=== PATIENT | female | born 1970 | race Caucasian/White ===

== ENCOUNTER 2019-02-03 07:28 | Inpatient (IN) | payer SELFPAY ==
[2019-02-03] MEDS ORDERED: FAMOTIDINE 20 MG/2 ML VIAL IV ONE (08:48)
[2019-02-03] MEDS ORDERED: ESMOLOL HCL 100 MG/10 ML IV ONE (08:48)
[2019-02-03] MEDS ORDERED: BUPIV. HCL 0.25% (2.5MG/ML)/EPI. (1:200,000) PF 30 ML VIAL IJ ONE (08:48)
[2019-02-03] MEDS ORDERED: LACTATED RINGERS 1,000 ML IV.SOLN IV ONE ×2 (08:48)
[2019-02-03] MEDS ORDERED: ROCURONIUM BROMIDE 10 MG/ML 5ML VIAL ONE (08:48)
[2019-02-03] MEDS ORDERED: PHENYLEPHRINE HCL 10 MG/1 ML ONE (08:48)
[2019-02-03] MEDS ORDERED: ONDANSETRON HCL/PF 4 MG/ 2ML VIAL ONE (08:48)
[2019-02-03] MEDS ORDERED: ePHEDrine SULFATE 50 MG/1 ML IVP ONE (08:48)
[2019-02-03] MEDS ORDERED: LIDOCAINE HCL 2% PF 100MG/5ML VIAL IJ ONE (08:48)
[2019-02-03] MEDS ORDERED: DEXAMETHASONE SODIUM PHOSPHATE 10 MG/ML VIAL ONE (08:48)
[2019-02-03] MEDS ORDERED: LIDOCAINE HCL 1% PF 300MG/30ML VIAL ONE (08:48)
[2019-02-03] MEDS ORDERED: SODIUM CHLORIDE IRRIG SOLUTION 3,000 ML IRRIG.SOLN IR ONE (08:48)
[2019-02-03] MEDS ORDERED: LEVALBUTEROL NEB 1.25 MG/3 ML VIAL.NEB NEB ONE (08:48)
[2019-02-03] MEDS ORDERED: SUGAMMADEX SODIUM 200 MG/2 ML VIAL IV ONE (08:48)
[2019-02-03] MEDS ORDERED: MIDAZOLAM HCL 2 MG/2 ML VIAL ONE (08:48)
[2019-02-03] MEDS ORDERED: SCOPOLAMINE HYDROBROMIDE 1.5MG/72HR PATCH TD ONE (08:48)
[2019-02-03] MEDS ORDERED: ceFAZolin SODIUM 1 GM VIAL ONE (08:48)
[2019-02-03] MEDS ORDERED: PROPOFOL 200 MG/20 ML VIAL IV ONE (08:48)
[2019-02-03] MEDS ORDERED: SEVOFLURANE 250 ML LIQUID IH ONE (08:48)
[2019-02-03] MEDS ORDERED: PROMETHAZINE HCL 25 MG in 0.9 % SODIUM CHLORIDE 50 ML IV PRN (11:49)
[2019-02-03] MEDS ORDERED: IPRATROPIUM/ALBUTEROL SULFATE 3 ML AMPUL.NEB NEB PRN (11:49)
[2019-02-03] MEDS ORDERED: MORPHINE SULFATE 2 MG/ML VIAL IV PRN (11:49)
--- NOTE | 2019-02-03 11:57 | History and Physical Report ---
History of Present Illnes - History of Present Illness Reason for Visit: S/P LSG History of Present Illness: Patient is a 48-year-old female who has tried multiple diets and exercise programs with no success. She has always struggled with her weight ever since having children. Patient and surgeon decided to proceed with gastric sleeve procedure. Procedure went well-Patient has been on a liquid diet prior to surgery so she is a risk of dehydration s/p surgery. She will be admitted for IV hydration to help hydrate patient until he is able to tolerate a sufficient oral intake, will treat pain with IV medication until patient is able to tolerate oral meds, IV antiemetics to help reduce episodes of nausea and/or vomiting. Patient will be monitored closely using telemetry s/p surgery d/t ROME. Will encourage incentive spirometer for morbid obesity and ROME. Will also monitor blood sugars closely due to low caloric intake. Patient appears very uncomfortable s/p surgery. 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 negative: Cough Cardiovascular: negative: Chest Pain Gastrointestinal: Nausea, Vomiting, Abdominal Pain Genitourinary: negative: Dysuria Musculoskeletal: Back Pain Skin: Other (abdominal incisions x 5) Neurological: Weakness - Medications/Allergies Allergies/Adverse Reactions: Allergies Allergy/AdvReac Type Severity Reaction Status Date / Time No Known Allergies Allergy Unverified 02/03/19 11:49 Exam - Exam General: Alert, Oriented to Person, Oriented to Place, Cooperative, Moderate distress (dry heaves), Morbidly Obese HEENT: PERRLA, Mouth Mucous membr. moist/[place], Nose Mucous membr. moist/[place] Neck: Normal Range of Motion Carotids: No bruit Lungs: Clear to auscultation, Normal air movement Cardiovascular: Regular rate, Normal S1, Normal S2 Peripheral Edema: None Peripheral Pulses: 2+ Abdomen: Soft, Decreased Bowel Sounds Integumentary: Warm, Dry, Pale, Other (incisions x5 without re dness/erythema/drainage; skin adhesive intact) Extremities: No edema, Normal pulses, No tenderness/swelling Neurological: Strength Equal Bilat, Sensation intact, Generalized Weakness Psych/Mental Status: Mental status NL, Mood NL, Appropriate Affect Assessment/Plan - Assessment/Plan (1) S/P laparoscopic sleeve gastrectomy Status: Acute Current Visit: Yes Plan: Plan to admit for IV hydration, IV pain meds, and IV antiemetics. Lovenox and SCDs to help prevent DVTs, IS and frequent ambulation will be implemented. Start ice chips and advance diet as tolerated. IV pepcid BID (2) Morbid obesity due to excess calories Status: Acute Current Visit: Yes Plan: Patient is s/p gastric sleeve. We will assist patient with implementing gastric sleeve diet protocol starting with ice chips and clear liquids and advancing as tolerated (3) Type 2 diabetes mellitus Status: Acute Current Visit: Yes Assessment: will monitor blood sugars ac & hs Plan: if blood sugars elevated may need to implement SSI (4) Nausea and vomiting Status: Acute Current Visit: Yes Plan: Pepcid IV BID ordered; IV antiemetics, and IVF (5) Osteoarthritis Status: Acute Current Visit: Yes Plan: Patient will be receiving pain medications; may use heating pad as needed (6) Obstructive sleep apnea Status: Acute Current Visit: Yes Plan: Patient has mild sleep apnea; no device; will monitor pulse ox and resp. status closely until fully withdrawn from anesthesia VTE Assessment - RISK FACTOR SCORE VTE RISK FACTOR SCORES: AGE 40-60 YEARS, OBESITY - RISK VTE MODERATE RISK: SCORE OF 2 (RISK PROXIMAL DVT 2-4%) PROPHYAXIS NEEDED (Lovenox, SCDs, Frequent ambulation, incentive spirometer)
[2019-02-03 12:05] VITALS: BMI 43.5
[2019-02-03] MEDS: 0.9 % SODIUM CHLORIDE 1,000 ML IV SCH ×2 (12:08→19:39)
[2019-02-03] MEDS: ACETAMINOPHEN 1,000 MG/100 ML INJ IV PRN (14:00)
[2019-02-03] MEDS: ONDANSETRON HCL/PF 4 MG/ 2ML VIAL IVP PRN (16:30)
[2019-02-03] MEDS: ceFAZolin SODIUM 1 GM in 0.9 % SODIUM CHLORIDE 50 ML IV SCH (17:05)
[2019-02-03] MEDS: FAMOTIDINE 20 MG/2 ML VIAL IVP SCH (20:15)
[2019-02-04] MEDS: ONDANSETRON HCL/PF 4 MG/ 2ML VIAL IVP PRN ×2 (00:30→17:15)
[2019-02-04] MEDS: ceFAZolin SODIUM 1 GM in 0.9 % SODIUM CHLORIDE 50 ML IV SCH (01:00)
[2019-02-04] MEDS: 0.9 % SODIUM CHLORIDE 1,000 ML IV SCH ×4 (02:51→22:05)
[2019-02-04 05:52] LABS: BASOPHILS % 0.5 % (0.0-1.5); NEUTROPHILS # 12.9 # k/uL (1.4-7.7)
--- NOTE | 2019-02-04 05:55 | Inpatient Progress Note ---
Subjective - Required Recertification Statement I anticipate X number of days because-include discharge plan: 1 - Review of Systems Events since last encounter: Patient is lying in bed this morning awake. She states that she did not get much sleep. She was having a lot of discomfort last night. She states that pain is improving. She has had some nausea and moderate discomfort from the gas. She denies any chest pain or shortness of breath. She has been up ambulating in the halls and using incentive spirometer while awake. She is compliant with care. General: Denies: Chills HEENT: Denies: Head Aches, Dysphasia Pulmonary: Denies: Dyspnea Cardiovascular: Denies: Chest Pain Gastrointestinal: Nausea, Vomiting, Abdominal Pain Genitourinary: Denies: Incontinence Musculoskeletal: Denies: Back Pain Neurological: Weakness Objective - Exam Vitals and I&O: Vital Signs Temp 98.3 F 02/04/19 02:00 Pulse 103 H 02/04/19 05:09 Resp 20 02/04/19 05:09 BP 162/82 02/04/19 02:00 Pulse Ox 97 02/04/19 05:08 Intake & Output 02/03/19 02/03/19 02/04/19 11:59 23:59 11:59 Intake Total 0 480 900 Output Total 0 550 1400 Balance 0 -70 -500 Weight 111.584 kg 111.584 kg 113.852 kg Intake: IV 450 900 Left AC space 450 900 Oral 0 30 Output: Urine 0 550 1400 Other: Voiding Method Toilet Toilet Toilet # Bowel Movements 0 0 0 General: Alert, Oriented to Person, Oriented to Place, Oriented to Time, Cooperative, Mild distress, Morbidly Obese HEENT: Atraumatic, PERRLA, Mouth Mucous membr. moist/[place], Nose Mucous membr. moist/[place] Neck: Supple, +2 carotid pulse wo bruit Lungs: Clear to auscultation, Normal air movement, Speaks full Sentences Cardiovascular: Regular rate, Normal S1, Normal S2 Abdomen: Soft, Decreased Bowel Sounds Extremities: No edema, Normal pulses, No tenderness/swelling Skin: [place], Warm, Dry, Other (incisions without redness/erythema/drainage; skin adhesive intact) Neurological: Normal gait, Normal speech, Strength Equal Bilat, Generalized Weakness Psych/Mental Status: Mental status NL, Mood NL, Appropriate Affect, Intact Judgment - Results Results: Laboratory Results WBC 15.80 K/ul (4.00-12.00) H 02/04/19 05:15 RBC 4.05 M/ul (3.90-5.20) 02/04/19 05:15 Hgb 12.5 g/dL (11.5-16.0) 02/04/19 05:15 Hct 36.2 % (34.5-46.5) 02/04/19 05:15 MCV 89.0 fl (80.0-100.0) 02/04/19 05:15 MCH 30.8 pg (28.0-34.0) 02/04/19 05:15 MCHC 34.4 g/dL (30.0-36.0) 02/04/19 05:15 RDW 12.2 % (11.3-14.3) 02/04/19 05:15 Plt Count 311 K/mm3 (130-400) 02/04/19 05:15 Neut % (Auto) 8.5 % (39.0-79.0) L 02/04/19 05:15 Lymph % (Auto) 11.9 % (16.0-50.0) L 02/04/19 05:15 [place] % (Auto) 5.1 % (0.0-11.0) 02/04/19 05:15 Eos % (Auto) 1.0 % (0.0-6.8) 02/04/19 05:15 Baso % (Auto) 0.5 % (0.0-1.5) 02/04/19 05:15 Neut # (Auto) 12.9 # k/uL (1.4-7.7) H 02/04/19 05:15 Lymph # (Auto) 1.9 # k/uL (0.6-4.0) 02/04/19 05:15 [place] # (Auto) 0.8 # k/uL (0.0-0.9) 02/04/19 05:15 Eos # (Auto) 0.2 # k/uL (0.0-0.6) 02/04/19 05:15 Baso # (Auto) 0.1 # k/uL (0.0-0.5) 02/04/19 05:15 Assessment/Plan - Assessment/Plan (1) S/P laparoscopic sleeve gastrectomy Status: Acute Assessment: Patient experiencing nausea; has been ambulating, wearing SCDs while in bed, using incentive spirometry, patient receiving lovenox to prevent DVT Plan: Patient getting IV fluids for hydration, IV pain meds, and IV antiemetics. Lovenox and SCDs to help prevent DVTs, IS and frequent ambulation will be implemented. Patient eating ice chips and will advance diet to clear liquids as tolerated once nausea and vomiting is controlled. Will continue with Pepcid IV BID for GI upset (2) Morbid obesity due to excess calories Status: Acute Assessment: Patient tolerating ice chips and water; some nausea Plan: Will advance diet to clear liquids today (3) Type 2 diabetes mellitus Status: Acute Assessment: Blood sugar this morning < 120s Plan: Will continue monitor closely (4) Nausea and vomiting Status: Acute Assessment: Patient having nausea; able to sip on fluids Plan: Will continue with Zofran and phenergan (5) Osteoarthritis Status: Acute Assessment: Stable at this time Plan: Will continue to monitor (6) Obstructive sleep apnea Status: Acute Assessment: Stable Plan: Will continue to monitor
[2019-02-04 05:56] LABS: eGFR (Non-African) > 60
[2019-02-04] MEDS: FAMOTIDINE 20 MG/2 ML VIAL IVP SCH ×2 (08:59→21:34)
[2019-02-04] MEDS: ACETAMINOPHEN 1,000 MG/100 ML INJ IV PRN (09:00)
[2019-02-04] MEDS: ENOXAPARIN SODIUM 40 MG/0.4 ML DISP.SYRIN SQ SCH (12:19)
[2019-02-04] MEDS: HYDROcodone-ACETAMIN 7.5-325/15ML SOLN UD CUP PO PRN (17:59)
[2019-02-05] MEDS: HYDROcodone-ACETAMIN 7.5-325/15ML SOLN UD CUP PO PRN ×2 (01:54→10:45)
[2019-02-05] MEDS: ONDANSETRON HCL/PF 4 MG/ 2ML VIAL IVP PRN ×2 (01:59→10:55)
[2019-02-05] MEDS: 0.9 % SODIUM CHLORIDE 1,000 ML IV SCH (04:04)
[2019-02-05] MEDS: ENOXAPARIN SODIUM 40 MG/0.4 ML DISP.SYRIN SQ SCH (08:19)
[2019-02-05 09:16] VITALS: BP 160/100
--- NOTE | 2019-02-05 10:14 | Discharge Summary ---
Discharge Summary - Discharge [facility] Admission Date: 02/03/19 Discharge Date: 02/05/19 Discharge To: Home History of Present Illness: Patient is a 48-year-old female who has tried multiple diets and exercise programs with no success. She has always struggled with her weight ever since having children. Patient and surgeon decided to proceed with gastric sleeve procedure which was performed on the day of admission.. Condition at Discharge: Stable Home Medications: Ambulatory Orders Medication Instructions Recorded Celecoxib 200 mg PO DAILY 02/03/19 Cholecalciferol (Vitamin D3) 2,000 unit PO DAILY 02/03/19 [Vitamin D3] Lansoprazole 30 mg PO QDAY 02/03/19 Levothyroxine Sodium 125 mcg PO DAILY 02/03/19 Multivitamin [One-Daily 1 each PO DAILY 02/03/19 Multi-Vitamin] Vit B12/Levomefolate/Vit B6/B2 1 each PO DAILY 02/03/19 [l-Methyl-Mc Tablet] metFORMIN HCl [Glucophage] [place] [id number] 02/03/19 Consultations this Visit: Other (Therapy, hospitalist service) Procedures this Visit: Other (Laparoscopic sleeve gastrectomy) Allergies/Adverse Reactions: Allergies Allergy/AdvReac Type Severity Reaction Status Date / Time No Known Allergies Allergy Unverified 02/03/19 11:49 Patient Problems: Current Active Problems Problem Status Onset Morbid obesity due to excess calories Acute Nausea and vomiting Acute Obstructive sleep apnea Acute Osteoarthritis Acute S/P laparoscopic sleeve gastrectomy Acute Type 2 diabetes mellitus Acute Discharge Summary: Discharged to home with phenergan 6.25 mg /5ml 10 cc every six hours for nausea and hydrocodone 7.5ml/15 ml 10 cc every six hours for pain. Follow up with Светлана Koenig next week as scheduled. Resume all previous medications. Hospital Course: Procedure went well-Patient has been on a liquid diet prior to surgery so she is a risk of dehydration s/p surgery. She was admitted for IV hydration to help hydrate patient until he was able to tolerate a sufficient oral intake, and treated with pain with IV medication until patient was able to tolerate oral meds, IV antiemetics to help reduce episodes of nausea and/or vomiting. Patient was be monitored closely using telemetry s/p surgery d/t ROME. Will encourage incentive spirometer for morbid obesity and ROME. Will also monitored blood sugars closely due to low caloric intake.
[2019-02-05] MEDS: FAMOTIDINE 20 MG/2 ML VIAL IVP SCH (10:35)
--- NOTE | 2019-02-07 17:36 | Operative Note ---
PROCEDURE DATE: 02/03/2019 PREOPERATIVE DIAGNOSIS: 1. Morbid obesity. 2. Type 2 diabetes. 3. Arthritis. 4. Gastroesophageal reflux disease. POSTOPERATIVE DIAGNOSIS: 1. Morbid obesity. 2. Type 2 diabetes. 3. Arthritis. 4. Gastroesophageal reflux disease. PROCEDURES PERFORMED: 1. Laparoscopic vertical sleeve gastrectomy. 2. Upper gastrointestinal endoscopy. SURGEON: Guicho Nicole M.D. INDICATIONS FOR PROCEDURE: Ms. Wolf is a 48-year-old female who presented with features of morbid obesity. She was noted to have a weight of 257 pounds with a BMI of 44.1 with the above-listed comorbidities. The patient was advised laparoscopic vertical sleeve gastrectomy and possible hiatal hernia repair. The patient showed understanding and agreed to proceed. DESCRIPTION OF PROCEDURE: After explaining to the patient in detail and informed consent was obtained, the patient was identified in the preoperative holding area. The patient was transferred to the operating room and was placed in supine position. Sequential compressive devices were placed for DVT prophylaxis. Preoperative antibiotics were given. After induction of anesthesia, the abdomen was prepped and draped in a sterile fashion. Through a left upper quadrant 1-cm incision, and using Optiview technique, the peritoneal cavity was entered and pneumoperitoneum was created. Thereafter, under direct vision, another 5-mm trocar was placed in the left midabdomen and another 15-mm trocar was placed in the right midabdomen. Through a 1-cm incision in the right subcostal region, another 5-mm trocar was placed. Through a 1-cm incision in the epigastrium, a Yeimi retractor was introduced and the left lobe of the liver was retracted. On initial inspection, the patient was noted to have no evidence of hiatal hernia. I took down the gastroepiploic vessels using a LigaSure. This was continued superiorly. The short gastric vessels were taken down. The gastrophrenic ligament was divided and the Angle of His was mobilized. The posterior attachments of the stomach on the pancreas were released. Distally, the gastroepiploic vessels were taken down up to about 4 cm proximal to the pylorus. At this point, a #38 [place] Hurst Bougie was introduced into the stomach and was placed along the lesser curve. The stomach was then divided in a vertical fashion with multiple Endo ANNABEL [employer]idien Black Load Staplers. The first firing was directed outwards towards the greater curvature. Subsequent firings were directed towards the Angle of His to create a loose sleeve around the #38 [place] bougie. The bougie was then removed and an upper GI endoscopy was performed at this point. The scope was introduced into the esophagus and was gradually advanced into the stomach. The GE junction appeared normal. The sleeve size appeared normal. No evidence of any active bleeding was noted. The stomach was insufflated with air and irrigation of fluid along the staple line revealed no evidence of air leak. The stomach was then suctioned out and the scope was removed. Absolute hemostasis was ensured. Thorough saline irrigation was given. The Yeimi retractor was removed. Approximately 10 mL of a lidocaine- Marcaine mix was instilled under the left hemidiaphragm. The sleeve gastrectomy specimen was removed. The abdomen was then deflated. The incisions were closed with 4-0 Monocryl. Dermabond was applied. Approximately 10 mL of a lidocaine- Marcaine mix was injected into all the incisions. The patient was awakened from anesthesia and was transferred to the recovery room in stable condition. ESTIMATED BLOOD LOSS: Approximately 10 mL. CONDITION OF THE PATIENT: Stable. FLUIDS GIVEN: Per Anesthesia note. SPECIMEN(S) SENT: Sleeve gastrectomy specimen. COMPLICATIONS: None. ANESTHESIA: General. Guicho Nicole M.D. YANNICK/yamilka (Please copy [facility] provider when applicable) Job #[id number] [place]
== END 2019-02-05 11:23 | disposition home or self-care (01) | DRG 621 ==
LOC: SOUTH 07:28 → UNDOADMIN 11:46 → SOUTH 11:46 → UNDODISIN 02-05 11:00
PROVIDERS: ADMIT Nurse Practitioner Family; ATTEND Nurse Practitioner Family
PROC: 0DB64Z3 Excision of Stomach, Percutaneous Endoscopic Approach, Vertical (ICD-10-PCS; principal; 2019-02-03)
DX: E66.01 Morbid (severe) obesity due to excess calories (principal); E11.9 Type 2 diabetes mellitus without complications; K21.9 Gastro-esophageal reflux disease without esophagitis; F41.9 Anxiety disorder, unspecified; E03.9 Hypothyroidism, unspecified; G47.33 Obstructive sleep apnea (adult) (pediatric); M15.9 Polyosteoarthritis, unspecified; Z68.41 Body mass index [BMI] 40.0-44.9, adult; Z79.84 Long term (current) use of oral hypoglycemic drugs; Z79.890 Hormone replacement therapy; Z79.899 Other long term (current) drug therapy
CPT/HCPCS: 80053; 85025; 88305; 88342; 97116; 97161; 97165; 97535; A9270; J0690; J1650; J2270; J2405; J7030; 43235; 43775; 99221; 99231; 99238; J2001; J2250; J2370; J2704; J7614; J7120